=== PATIENT | male | born 1980 | race Caucasian/White ===

== ENCOUNTER → 2020-10-02 08:40 | Outpatient (BNVA) | payer BC, SELFPAY | PROVIDERS: Family Provider Nurse Practitioner Family; PCP Nurse Practitioner Family; Visit Provider Nurse Practitioner Family | DX: R14.0 Abdominal distension (gaseous) (principal) | CPT/HCPCS: 87338 ==

== ENCOUNTER → 2021-08-04 11:34 | Outpatient (BNVA) | payer BC, SELFPAY | PROVIDERS: Family Provider Nurse Practitioner Family; PCP Nurse Practitioner Family; Visit Provider Nurse Practitioner Family | DX: Z20.822 Contact with and (suspected) exposure to COVID-19 (principal); R50.9 Fever, unspecified | CPT/HCPCS: 87633; 87635 ==

== ENCOUNTER → 2021-09-30 10:56 | Outpatient (BNVA) | payer BC, SELFPAY | PROVIDERS: Family Provider Nurse Practitioner Family; PCP Nurse Practitioner Family; Visit Provider Nurse Practitioner Family | DX: R68.89 Other general symptoms and signs (principal) | CPT/HCPCS: 87400 ==

== ENCOUNTER → 2022-10-05 11:50 | Outpatient (BNVA) | payer BC, SELFPAY | PROVIDERS: Family Provider Nurse Practitioner Family; PCP Nurse Practitioner Family; Visit Provider Nurse Practitioner Family | DX: R53.83 Other fatigue (principal); I10 Essential (primary) hypertension; E78.5 Hyperlipidemia, unspecified; M25.562 Pain in left knee | CPT/HCPCS: 80053; 80061; 84403; 84443 ==

== ENCOUNTER → 2022-10-08 10:02 | Outpatient (BNVA) | payer BC, SELFPAY | PROVIDERS: Family Provider Nurse Practitioner Family; PCP Nurse Practitioner Family; Visit Provider Nurse Practitioner Family | DX: R73.09 Other abnormal glucose (principal) | CPT/HCPCS: 83036 ==

== ENCOUNTER 2022-10-16 11:07 | Outpatient (CLI) | payer BC, MEDICAID, SELFPAY ==
--- NOTE | 2022-10-16 11:15 | XR_ITS ---
WS: [id number] XR knee LT 3V* [id number] REASON FOR EXAM: M25.562 - Pain in left knee FINDINGS: No fracture or focal bone lesion. Medial knee joint spaces intact and well preserved with mild subchondral sclerosis. Lateral knee joint space is unremarkable. Mild narrowing of the patellofemoral joint space with mild subchondral sclerosis and osteophytosis of the patella XR/XR knee LT 3V* [id number] IMPRESSION: Mild osteoarthritis of the left knee.
== END 2022-10-16 11:08 | disposition home or self-care (01) ==
LOC: RAD 11:11
PROVIDERS: PCP Nurse Practitioner Family; Visit Provider Nurse Practitioner Family
DX: M17.12 Unilateral primary osteoarthritis, left knee (principal)
CPT/HCPCS: 73562

== ENCOUNTER 2022-11-08 11:37 | Emergency (ER) | payer BC, MEDICAID, SELFPAY ==
[2022-11-08 11:43] VITALS: BP 124/81; PULSE 69; RESP 16; TEMP 36.3; O2SAT 97
--- NOTE | 2022-11-08 12:58 | W.ED.SKABFB ---
HPI - Skin/Abscess/Foreign Bdy General: Chief complaint: Skin/Abscess/Foreign Body Stated complaint: abnormal spot on waist/groin Time Seen by Provider: 11/08/22 12:40 History of Present Illness: Patient is a 42-year-old male that comes to the ED with possible abscess. Patient has gotten skin infections/abscesses like this before in the upper pelvic area. Patient says he wears a work belt that causes a lot of rubbing and friction right over his pelvic region and causes these skin infections. Symptoms started approximately 4 days ago. He had a sore red area in the upper mid pelvic region around waistline. Area has continued to get more painful warm and red. Denies any purulent drainage. Abscess is painful and he rates it 10 out of 10. Denies any fevers or any other symptoms. Associated symptoms: Deny chills, fever(s), nausea or vomiting Review of Systems Const: Denies: fever(s), chills or fatigue Eyes: Denies: change in vision or eye discomfort ENMT: Denies: throat pain, odynophagia, nasal discharge or nasal congestion Card: Denies: chest pain, palpitations, edema, swelling of feet/ankles, dyspnea on exertion or orthopnea Resp: Denies: dyspnea, productive cough or non-productive cough GI: Denies: abdominal pain, nausea, vomiting, diarrhea, constipation or hematochezia : Denies: flank pain, difficulty urinating, dysuria or hematuria Musc: Denies: neck pain, back pain or extremity swelling Skin/Breast: Reports: new lesions (Abscess in pelvic region.); Denies: rash Neuro: Denies: headache(s), numbness in extremities or weakness in extremities PFS ED PFSH: Medical History No pertinent past medical history Surgical History No pertinent past surgical history Social History Smoking and tobacco status: current every day smoker Alcohol intake: never Substance/Drug Use: never Lives independently: No Household members: significant other service: Yes Sexually active: Yes Do you think of yourself as: Straight/Heterosexual Current gender identity: Male Physical Exam Const: COMMON NORMALS: no acute distress, patient oriented x3 and alert GENERAL APPEARANCE: cooperative HENMT: COMMON NORMALS: normocephalic HEAD & SCALP: normocephalic MOUTH: Normal oral and palatal mucosa present THROAT: posterior oropharynx normal and uvula midline Neck/C-Spine: COMMON NORMALS: supple GENERAL: Yes normal visual inspection Resp: COMMON NORMALS: normal respiratory effort, No retractions, No use of accessory muscles and clear to auscultation bilaterally AUSCULTATION: clear to auscultation bilaterally Cardio: COMMON NORMALS: regular rate, regular rhythm, S1 normal heart sound present, S2 normal heart sound present, No gallops present (Cardio), No clicks present (Cardio), No murmurs present (Cardio) and Peripheral pulses 2+ throughout RATE: regular rate RHYTHM: regular rhythm HEART SOUNDS: S1 normal heart sound present and S2 normal heart sound present PERIPHERAL PULSES: Peripheral pulses 2+ throughout GI: COMMON NORMALS: Normal to inspection, nondistended, normoactive bowel sounds present, Soft to palpation, non-tender and no masses PALPATION: Yes Soft to palpation : COMMON NORMALS: Yes no CVA tenderness BLADDER/KIDNEY EXAM: Yes no CVA tenderness Back/Pelvis: COMMON NORMALS: no CVA tenderness Neuro: COMMON NORMALS: patient oriented x3 SENSORIUM/ORIENTATION: Yes alert GAIT: Yes Normal gait present Skin: NARRATIVE SKIN EXAM: Mid lower abdomen around waistline?and erythemic warm and tender lesion noted. Lesion is indurated and fluctuant. Findings suggestive of a abscess. Procedures Abscess I/D Site: abdomen (Mid lower abdomen around waistline) Sedation/analgesia: other (Patient was given a dose of morphine to help with pain) Local Anesthetic: lidocaine 1% Amount of anesthesia used (mL): 3 Technique: incised with #11 blade Amount of fluid expressed (mL): 2 (Malodorous purulent drainage) Irrigation: Yes Packing used?: none Course Vital Signs: Vital signs: Vital Signs Temperature 97.4 F L 11/08/22 11:43 Pulse Rate 69 11/08/22 11:43 Respiratory Rate 16 11/08/22 11:43 Blood Pressure 124/81 11/08/22 11:43 Pulse Oximetry 97 11/08/22 11:43 Oxygen Delivery Me thod Room Air 11/08/22 11:43 MDM - Skin/Abscess/Foreign Bdy Medicial Decision Making Patient is a 42-year-old male that comes to the ED with possible abscess. Patient has gotten skin infections/abscesses like this before in the upper pelvic area. Patient says he wears a work belt that causes a lot of rubbing and friction right over his pelvic region and causes these skin infections. Symptoms started approximately 4 days ago. He had a sore red area in the upper mid pelvic region around waistline. Area has continued to get more painful warm and red. Denies any purulent drainage. Vital stable. Mid lower abdomen around waistline?and erythemic warm and tender lesion noted. Lesion is indurated and fluctuant. Findings suggestive of a abscess. Abscess I&D was performed and lidocaine 1% was used as local. About 2 mL of thick and malodorous purulent drainage from the abscess. It was irrigated with normal saline and patient was stable for discharge home. He was sent home with a prescription for Bactrim told to follow-up with PCP in the next couple days for reevaluation of abscess. Patient understood and agreed with plan. Discharge Plan Discharge Patient Disposition: Home Clinical Impression: Abscess of skin or subcutaneous tissue Qualifiers: Site of cutaneous abscess of trunk: abdominal wall Condition: Stable Prescriptions: New Bactrim DS 800-160 mg tablet 1 tab PO BID 7 Days Qty: 14 0RF No Action simvastatin [Zocor] 20 mg tablet 20 mg PO DAILY Qty: 30 0RF omeprazole 20 mg capsule,delayed release(DR/EC) 20 mg PO BID Qty: 60 0RF testosterone cypionate [Depo-Testosterone] 200 mg/mL oil 100 mg SUBCUT Q14D Qty: 10 0RF Discharge Orders: Discharge ED (Routine); Ordered 11/08/22 Ordered By: Filiberto Olsen Referrals: Leila Lombardi FNP [Primary Care Provider] - Discharge Diet: Regular Discharge Activity: Increase activity as tolerated Patient Instructions: Abscess (ED) Activity Restrictions/Additional Instructions: Follow-up with medical provider as directed in the next 3-5 days for reevaluation. Take medications as prescribed. Return to the ER or your medical provider if condition worsens. Please read and understand discharge instructions. Thank you for choosing [facility] for your healthcare needs today. Please realize this is an emergency room and that we are providing you with a medical screening exam and this may not be complete and all inclusive of all the testing and or work up that you may need to determine your ailment or severity of your illness. It is very important that you follow up as instructed or that you return to the Emergency Department should you have concerns or if your condition changes or worsens in any way. Coding Level of Care Code ED Medical Insurance Verifier for Glory Schmidt
[2022-11-08] MEDS: morphine 4 mg/mL SDV 1 mL IM (13:29)
[2022-11-08] MEDS: sulfamethoxazole-trimeth DS 160-800 mg Tablet 1 TAB PO (14:35)
== END 2022-11-08 14:46 | disposition home or self-care (01) ==
PROVIDERS: Emergency Provider Physician Assistant; PCP Nurse Practitioner Family
DX: L02.211 Cutaneous abscess of abdominal wall (principal); F17.210 Nicotine dependence, cigarettes, uncomplicated
CPT/HCPCS: 10060; 87070; 87075; 87077; 87186; 87205; 96372; 99284; J2270

== ENCOUNTER → 2022-11-16 11:08 | Outpatient (BNVA) | payer BC, MEDICAID, SELFPAY | PROVIDERS: PCP Nurse Practitioner Family; Visit Provider Nurse Practitioner Family | DX: E78.5 Hyperlipidemia, unspecified (principal); L02.91 Cutaneous abscess, unspecified | CPT/HCPCS: 80061 ==

== ENCOUNTER → 2022-12-18 11:31 | Outpatient (BNVA) | payer BC, MEDICAID, SELFPAY | PROVIDERS: PCP Nurse Practitioner Family; Visit Provider Nurse Practitioner Family | DX: R73.09 Other abnormal glucose (principal); R79.89 Other specified abnormal findings of blood chemistry; E78.5 Hyperlipidemia, unspecified | CPT/HCPCS: 80053; 84403 ==

== ENCOUNTER → 2023-01-27 09:47 | Outpatient (BNVA) | payer BC, MEDICAID, SELFPAY | PROVIDERS: PCP Nurse Practitioner Family; Visit Provider Nurse Practitioner Family | DX: L02.415 Cutaneous abscess of right lower limb (principal); R79.89 Other specified abnormal findings of blood chemistry | CPT/HCPCS: 84403; 87070 ==

== ENCOUNTER 2023-03-25 22:03 | Emergency (ER) | payer BC, MEDICAID, SELFPAY ==
[2023-03-25 22:15] VITALS: BP 124/92; PULSE 84; RESP 18; TEMP 36.6; O2SAT 96; BMI 36.6
[2023-03-25 23:54] LABS: Basophils # 0.1 10^3/uL (0.0-0.1); Basophils % 0.6 %; Eosinophils # 0.3 10^3/uL (0.0-0.8); Eosinophils % 2.1 %; Hematocrit 44.8 % (37-53); Lymphocytes # 2.2 10^3/uL (0.8-4.8); Mean Corpuscular Volume 90.9 fl (82-101); Mean Platelet Volume 9.4 fL (7.4-10.4); Monocytes # 1.1 10^3/uL (0.2-0.9); Monocytes % 9.3 %; Neutrophils # 8.05 10^3/uL (1.8-7.7); Neutrophils % 68.7 %; Nucleated Red Blood Cells % 0 %; Platelet Count 264 10^3/cmm (157-399); Red Blood Count 4.93 10^6/uL (3.85-5.65); Red Cell Distribution Width 12.7 % (12.1-15.1); White Blood Count 11.71 10^3/uL (3.29-11.43)
[2023-03-26 00:11] LABS: Alanine Aminotransferase 33 U/L (0-41); Albumin Level 4.5 g/dL (3.5-5.2); Alkaline Phosphatase 96 U/L (40-130); Aspartate Amino Transferase 20 U/L (0-40); Blood Urea Nitrogen 13 mg/dL (6-20); Calcium 9.5 mg/dL (8.5-10.5); Carbon Dioxide 26 mmol/L (22-29); Chloride 102 mmol/L (98-107); Globulin 3.1 g/dL (1.3-4.6); Glomerular Filtration Rate 104.5 mL/min (90-130); Glucose 94 mg/dL (65-115); Lipase 20 U/L (13-60); Osmolality Calculated 286 mOsm/kg (285-295); Sodium 138 mmol/L (136-145); Total Bilirubin 0.2 mg/dL (0.15-1.2); Total Protein 7.6 g/dL (6.6-8.7)
--- NOTE | 2023-03-26 00:48 | CTR_ITS ---
PROCEDURE INFORMATION: Exam: CT Abdomen And Pelvis With Contrast Exam date and time: 03/26/2023 1:42 AM Age: 43 years old Clinical indication: Abdominal pain; Localized; Patient HX: Lower abd pain that radiates to the left side for 5 days; Additional info: Generalized abdominal pain worse left lower quadrant TECHNIQUE: Imaging protocol: Computed tomography of the abdomen and pelvis with contrast. Radiation optimization: All CT scans at this facility use at least one of these dose optimization techniques: automated exposure control; mA and/or kV adjustment per patient size (includes targeted exams where dose is matched to clinical indication); or iterative reconstruction. Contrast material: OMNI 350; Contrast volume: 100 ml; Contrast route: INTRAVENOUS (IV); REPORTING DATA: Count of CT and Cardiac NM exams in prior 12 months: This patient has received 0 known CTs and 0 known cardiac nuclear medicine studies in the 12 months prior to the current study. COMPARISON: No relevant prior studies available. RADIATION DOSE METRICS: Total DLP (mGy-cm): 1086.49 FINDINGS: Liver: Normal. No mass. Gallbladder and bile ducts: Normal. No calcified stones. No ductal dilation. Pancreas: Normal. No ductal dilation. Spleen: Normal. No splenomegaly. Adrenal glands: Normal. No mass. Kidneys and ureters: Normal. No hydronephrosis. Stomach and bowel: Unremarkable. No obstruction. No mucosal thickening. Appendix: No evidence of appendicitis. Intraperitoneal space: Unremarkable. No free air. No significant fluid collection. Vasculature: Unremarkable. No abdominal aortic aneurysm. Lymph nodes: Unremarkable. No enlarged lymph nodes. Urinary bladder: Unremarkable as visualized. Reproductive: Unremarkable as visualized. Bones/joints: Unremarkable. No acute fracture. Soft tissues: Unremarkable. CT/CT abdomen pelvis w con* [id number] IMPRESSION: No acute findings.
[2023-03-26] MEDS: iohexol 350 mg/mL 500 mL Btl (per mL) IV (01:46)
[2023-03-26] MEDS: sodium chloride 0.9% 1,000 ML 999 ML IV (02:00)
--- NOTE | 2023-03-26 02:16 | ED_ITS ---
Documented by User: JOHN Kamara 04/08/23 09:01 HPI - Abdominal Pain General: Chief Complaint: Abdominal Pain Stated Complaint: abd pain Time Seen by Provider: 03/26/23 00:22 History of Present Illness: Patient is in today for abdominal pain. He reports that for 5 days he has had abdominal cramping pain and diarrhea. He reports having diarrhea stools 12+ times per day. He reports that in the beginning the stool started out as a yellow mucus and they have turned more dark to black. He reports are soft formed. He denies vomiting. He reports that he has had low-grade fever off and on since Wednesday. He states that he did see his primary care provider and is supposed to do a stool sample tomorrow. Associated Symptoms: Reports change in stool character, diarrhea and fever(s); Denies chills and dysuria Review of Systems Const: Reports: fever(s); Denies: chills Card: Denies: chest pain or palpitations Resp: Denies: dyspnea, productive cough or non-productive cough GI: Reports: abdominal pain, diarrhea and change in stool character : Denies: flank pain, difficulty urinating or dysuria PFS ED PFSH: Medical History No pertinent past medical history Surgical History No pertinent past surgical history Social History Smoking and tobacco status: current every day smoker Alcohol intake: never Substance/Drug Use: never Lives independently: No Household members: significant other service: Yes Sexually active: Yes Do you think of yourself as: Straight/Heterosexual Current gender identity: Male Physical Exam Const: COMMON NORMALS: no acute distress, patient oriented x3 and alert Neck/C-Spine: COMMON NORMALS: no JVD Resp: COMMON NORMALS: normal respiratory effort, No use of accessory muscles and clear to auscultation bilaterally AUSCULTATION: clear to auscultation bilaterally Cardio: COMMON NORMALS: no JVD, regular rate, regular rhythm, S1 normal heart sound present, S2 normal heart sound present and No murmurs present (Cardio) RATE: regular rate RHYTHM: regular rhythm HEART SOUNDS: S1 normal heart sound present and S2 normal heart sound present GI: COMMON NORMALS: Soft to palpation INSPECTION: Yes normal to inspection AUSCULTATION: Yes normoactive bowel sounds PALPATION: Yes Soft to palpation and Yes Tenderness to palpation present (GI) Details: LLQ, RLQ and LUQ OTHER: Patient with fairly generalized abdominal pain worse in the left lower quadrant and right lower quadrant abdomen. Guarding tenderness with no rebound. Abdomen is soft. Neuro: COMMON NORMALS: patient oriented x3 SENSORIUM/ORIENTATION: Yes alert Course Vital Signs: Vital signs: Vital Signs Temperature 97.9 F 03/25/23 22:15 Pulse Rate 84 03/25/23 22:15 Respiratory Rate 18 03/25/23 22:15 Blood Pressure 124/92 03/25/23 22:15 Pulse Oximetry 96 03/25/23 22:15 Oxygen Delivery Me thod Room Air 03/25/23 22:15 MDM - Abdominal Pain Medical Decision Making Care of patient transferred to Dr. Stroud. Patient resting in bed with eyes closed arouses to soft verbal stimuli. CT scan is back and unremarkable. Patient's IV fluids are continuing to infuse. Patient thinks that he will be able to give a stool sample soon. Lab Data 03/25/23 23:43 03/25/23 23:43 Labs/Radiology: Radiology Impressions Abdomen/Pelvis CT 03/26/23 00:48 IMPRESSION: No acute findings. Laboratory Results WBC 11.71 10^3/uL (3.29-11.43) H 03/25/23 23:43 RBC 4.93 10^6/uL (3.85-5.65) 03/25/23 23:43 Hgb 14.80 g/dL (11.27-16.99) 03/25/23 23:43 Hct 44.8 % (37-53) 03/25/23 23:43 MCV 90.9 fl (82-101) 03/25/23 23:43 MCH 30.0 pg (27-33) 03/25/23 23:43 MCHC 33.0 g/dL (30-55) 03/25/23 23:43 RDW 12.7 % (12.1-15.1) 03/25/23 23:43 Plt Count 264 10^3/cmm (157-399) 03/25/23 23:43 MPV 9.4 fL (7.4-10.4) 03/25/23 23:43 Neut % (Auto) 68.7 % 03/25/23 23:43 Lymph % (Auto) 19.0 % 03/25/23 23:43 [place] % (Auto) 9.3 % 03/25/23 23:43 Eos % (Auto) 2.1 % 03/25/23 23:43 Baso % (Auto) 0.6 % 03/25/23 23:43 Neut # (Auto) 8.05 10^3/uL (1.8-7.7) H 03/25/23 23:43 Lymph # (Auto) 2.2 10^3/uL (0.8-4.8) 03/25/23 23:43 [place] # (Auto) 1.1 10^3/uL (0.2-0.9) H 03/25/23 23:43 Eos # (Auto) 0.3 10^3/uL (0.0-0.8) 03/25/23 23:43 Baso # (Auto) 0.1 10^3/uL (0.0-0.1) 03/25/23 23:43 Nucleated RBC % (auto) 0 % 03/25/23 23:43 Nucleated RBCs # 0.0 /100WBC 03/25/23 23:43 Sodium 138 mmol/L (136-145) 03/25/23 23:43 Potassium 4.0 mmol/L (3.5-5.1) 03/25/23 23:43 Chloride 102 mmol/L (98-107) 03/25/23 23:43 Carbon Dioxide 26 mmol/L (22-29) 03/25/23 23:43 Anion Gap 14.0 (5-19) 03/25/23 23:43 BUN 13 mg/dL (6-20) 03/25/23 23:43 Creatinine 0.8 mg/dL (0.7-1.2) 03/25/23 23:43 GFR Calculation 104.5 mL/min (90-130) 03/25/23 23:43 Glucose 94 mg/dL (65-115) 03/25/23 23:43 Calculated Osmolality 286 mOsm/kg (285-295) 03/25/23 23:43 Calcium 9.5 mg/dL (8.5-10.5) 03/25/23 23:43 Total Bilirubin 0.2 mg/dL (0.15-1.2) 03/25/23 23:43 AST 20 U/L (0-40) 03/25/23 23:43 ALT 33 U/L (0-41) 03/25/23 23:43 Alkaline Phosphatase 96 U/L (40-130) 03/25/23 23:43 Total Protein 7.6 g/dL (6.6-8.7) 03/25/23 23:43 Albumin 4.5 g/dL (3.5-5.2) 03/25/23 23:43 Globulin 3.1 g/dL (1.3-4.6) 03/25/23 23:43 Lipase 20 U/L (13-60) 03/25/23 23:43 Discharge Plan Discharge Patient Disposition: Home Clinical Impression: Abdominal pain Diarrhea Qualifiers: Diarrhea type: unspecified type Qualified Code(s): R19.7 - Diarrhea, unspecified Condition: Stable Prescriptions: No Action ciprofloxacin HCl [Cipro] 500 mg tablet 500 mg PO BID 7 Days Qty: 14 0RF Discharge Orders: Discharge ED (Routine); Ordered 03/26/23 Ordered By: Rojelio Stroud Referrals: Leila Lombardi FNP [Primary Care Provider] - 1-3 days Patient Instructions: Diarrhea - Adult, Abdominal Pain (ED) Activity Restrictions/Additional Instructions: Please keep your previously scheduled appointment with your family practice physician for further evaluation and treatment. Coding Level of Care Code ED Track And Field Coach for Chg Fwd Documented by User: Rojelio Stroud DO 03/29/23 18:52 HPI - Abdominal Pain General: Chief Complaint: Abdominal Pain Stated Complaint: abd pain Time Seen by Provider: 03/26/23 00:22 [facility] ED PFSH: Medical History No pertinent past medical history Surgical History No pertinent past surgical history Social History Smoking and tobacco status: current every day smoker Alcohol intake: never Substance/Drug Use: never Lives independently: No Household members: significant other service: Yes Sexually active: Yes Do you think of yourself as: Straight/Heterosexual Current gender identity: Male Course Vital Signs: Vital signs: Vital Signs Temperature 97.9 F 03/25/23 22:15 Pulse Rate 84 03/25/23 22:15 Respiratory Rate 18 03/25/23 22:15 Blood Pressure 124/92 03/25/23 22:15 Pulse Oximetry 96 03/25/23 22:15 Oxygen Delivery Me thod Room Air 03/25/23 22:15 MDM - Abdominal Pain Medical Decision Making Care of patient transferred to Dr. Stroud. Patient resting in bed with eyes closed arouses to soft verbal stimuli. CT scan is back and unremarkable. Patient's IV fluids are continuing to infuse. Patient thinks that he will be able to give a stool sample soon. Care was taken over from the midlevel provider. IV fluids are infusing. Patient be discharged home with a diagnosis of diarrhea and abdominal pain and is to follow-up at a previously scheduled appointment with his primary care physician. Differential Diagnosis Likely abdominal pain; Unlikely acute appendicitis, calculus of kidney, consti pation, diverticulitis, endometriosis, gastroenteritis, pancreatitis or small bowel obstruction Medical Records I reviewed the patient's medical records. Lab Data I reviewed the patient's lab results. 03/25/23 23:43 03/25/23 23:43 Labs/Radiology: Radiology Impressions Abdomen/Pelvis CT 03/26/23 00:48 IMPRESSION: No acute findings. Laboratory Results WBC 11.71 10^3/uL (3.29-11.43) H 03/25/23 23:43 RBC 4.93 10^6/uL (3.85-5.65) 03/25/23 23:43 Hgb 14.80 g/dL (11.27-16.99) 03/25/23 23:43 Hct 44.8 % (37-53) 03/25/23 23:43 MCV 90.9 fl (82-101) 03/25/23 23:43 MCH 30.0 pg (27-33) 03/25/23 23:43 MCHC 33.0 g/dL (30-55) 03/25/23 23:43 RDW 12.7 % (12.1-15.1) 03/25/23 23:43 Plt Count 264 10^3/cmm (157-399) 03/25/23 23:43 MPV 9.4 fL (7.4-10.4) 03/25/23 23:43 Neut % (Auto) 68.7 % 03/25/23 23:43 Lymph % (Auto) 19.0 % 03/25/23 23:43 [place] % (Auto) 9.3 % 03/25/23 23:43 Eos % (Auto) 2.1 % 03/25/23 23:43 Baso % (Auto) 0.6 % 03/25/23 23:43 Neut # (Auto) 8.05 10^3/uL (1.8-7.7) H 03/25/23 23:43 Lymph # (Auto) 2.2 10^3/uL (0.8-4.8) 03/25/23 23:43 [place] # (Auto) 1.1 10^3/uL (0.2-0.9) H 03/25/23 23:43 Eos # (Auto) 0.3 10^3/uL (0.0-0.8) 03/25/23 23:43 Baso # (Auto) 0.1 10^3/uL (0.0-0.1) 03/25/23 23:43 Nucleated RBC % (auto) 0 % 03/25/23 23:43 Nucleated RBCs # 0.0 /100WBC 03/25/23 23:43 Sodium 138 mmol/L (136-145) 03/25/23 23:43 Potassium 4.0 mmol/L (3.5-5.1) 03/25/23 23:43 Chloride 102 mmol/L (98-107) 03/25/23 23:43 Carbon Dioxide 26 mmol/L (22-29) 03/25/23 23:43 Anion Gap 14.0 (5-19) 03/25/23 23:43 BUN 13 mg/dL (6-20) 03/25/23 23:43 Creatinine 0.8 mg/dL (0.7-1.2) 03/25/23 23:43 GFR Calculation 104.5 mL/min (90-130) 03/25/23 23:43 Glucose 94 mg/dL (65-115) 03/25/23 23:43 Calculated Osmolality 286 mOsm/kg (285-295) 03/25/23 23:43 Calcium 9.5 mg/dL (8.5-10.5) 03/25/23 23:43 Total Bilirubin 0.2 mg/dL (0.15-1.2) 03/25/23 23:43 AST 20 U/L (0-40) 03/25/23 23:43 ALT 33 U/L (0-41) 03/25/23 23:43 Alkaline Phosphatase 96 U/L (40-130) 03/25/23 23:43 Total Protein 7.6 g/dL (6.6-8.7) 03/25/23 23:43 Albumin 4.5 g/dL (3.5-5.2) 03/25/23 23:43 Globulin 3.1 g/dL (1.3-4.6) 03/25/23 23:43 Lipase 20 U/L (13-60) 03/25/23 23:43 All radiology interpretation(s) finalized by discharge Discharge Plan Discharge Patient Disposition: Home Clinical Impression: Abdominal pain Diarrhea Qualifiers: Diarrhea type: unspecified type Qualified Code(s): R19.7 - Diarrhea, unspecified Condition: Stable Prescriptions: No Action ciprofloxacin HCl [Cipro] 500 mg tablet 500 mg PO BID 7 Days Qty: 14 0RF Discharge Orders: Discharge ED (Routine); Ordered 03/26/23 Ordered By: Rojelio Stroud Referrals: Leila Lombardi FNP [Primary Care Provider] - 1-3 days Patient Instructions: Diarrhea - Adult, Abdominal Pain (ED) Activity Restrictions/Additional Instructions: Please keep your previously scheduled appointment with your family practice physician for further evaluation and treatment. Coding Level of Care Code ED Track And Field Coach for Glory Schmidt
== END 2023-03-26 03:32 | disposition home or self-care (01) ==
PROVIDERS: Emergency Medicine; Emergency Provider Nurse Practitioner Family; PCP Nurse Practitioner Family
DX: R10.9 Unspecified abdominal pain (principal); R19.7 Diarrhea, unspecified; F17.210 Nicotine dependence, cigarettes, uncomplicated
CPT/HCPCS: 36415; 74177; 80053; 82274; 83690; 85025; 99285; J7030; Q9967

== ENCOUNTER → 2023-05-07 11:19 | Outpatient (BNVA) | payer BC, MEDICAID, SELFPAY | PROVIDERS: PCP Nurse Practitioner Family; Visit Provider Nurse Practitioner Family | DX: R53.83 Other fatigue (principal); R79.89 Other specified abnormal findings of blood chemistry | CPT/HCPCS: 84403 ==

== ENCOUNTER → 2024-05-25 10:16 | Outpatient (BNVA) | payer BC, MEDICAID, SELFPAY | PROVIDERS: PCP Nurse Practitioner Family; Visit Provider Nurse Practitioner Family | DX: R35.0 Frequency of micturition (principal); R53.83 Other fatigue; R73.09 Other abnormal glucose; G47.30 Sleep apnea, unspecified; I10 Essential (primary) hypertension | CPT/HCPCS: 80053; 80061; 81000; 82962; 83036 ==

== ENCOUNTER 2024-10-10 12:10 | Outpatient (CLI) | payer BC, MEDICAID, SELFPAY ==
--- NOTE | 2024-10-10 | ECG_ITS ---
[facility]: [facility] Pat Name: Bernardo Frey Department: Room: Gender: Male Pump Station Operator: : 1980 Requested By: Gary Ron Order Number: [id number] Micaela MD: Pedro Narayanan M.D. Interpretive Statements EXERCISE STRESS TEST EXERCISE DATA: The patient was exercised by Darryl protocol. Baseline heart rate was 74 beats per minute. Baseline blood pressure was 106/75 millimeters of mercury. Maximal predicted heart rate was 174 beats per minute. Maximum heart rate achieved was 152 which was 87% of the maximum predicted heart rate. Maximum blood pressure was 167/62 millimeters of mercury. Total exercise time was 8 minutes and 14 seconds. Maximum METs achieved was 10.2. The reason for ending the test was maximal effort was achieved. The patient complained of shortness of breath during the stress test, which then resolved at the end of the test. ELECTROCARDIOGRAM: BASELINE: Showed sinus rhythm, normal axis, no significant ST-T changes at the baseline noted. [] EXERCISE: At the peak exercise level, [] No significant ST-T changes suggestive of ischemia noted. Frequent PVCs were seen [] RECOVERY: During the recovery period, heart rate dropped appropriately. No significant ST-T changes in the recovery suggestive of ischemia noted. [] CONCLUSION: 1. Exercise capacity is good. 2. Heart rate response was appropriate 3. Blood pressure response was appropriate 4. Symptoms not suggestive of ischemia. 5. Exercise induced Frequent PVCs were seen. Although EKG did not show ischemic changes, frequent PVCs in bigeminal pattern associated with peak exercise, will recommend further cardiology evaluation. Stress test is negative for ischemia. Electronically Signed On 10-28-2024 20:41:41 CDT by Pedro Narayanan M.D. [email or web address]
[2024-10-10 12:37] VITALS: BMI 37.0
[2024-10-10 13:01] VITALS: BP 119/77; PULSE 99
== END 2024-10-10 12:11 | disposition home or self-care (01) ==
LOC: CDL 12:17
PROVIDERS: PCP Family Medicine; Visit Provider Family Medicine
DX: E11.9 Type 2 diabetes mellitus without complications (principal); E66.01 Morbid (severe) obesity due to excess calories; E78.2 Mixed hyperlipidemia; R53.83 Other fatigue; Z82.49 Family history of ischemic heart disease and other diseases of the circulatory system
CPT/HCPCS: 93017

== ENCOUNTER → 2024-11-16 11:23 | Outpatient (BNVA) | payer BC, MEDICAID, SELFPAY | PROVIDERS: PCP Nurse Practitioner Family; Visit Provider Internal Medicine | DX: E11.65 Type 2 diabetes mellitus with hyperglycemia (principal); Z79.899 Other long term (current) drug therapy | CPT/HCPCS: 36415; 80053; 80061; 82947; 83036; 84681; 86337; 86341 ==